=== PATIENT | male | born 2000 | race Caucasian/White ===

== ENCOUNTER 2022-09-07 15:10 | Outpatient (CLI) | payer OTHER ==
[2022-09-07 16:28] LABS: #Eosinphils 0.1 10x3/uL (0.0-0.5); #Monocytes 1.1 10x3/uL (0.0-1.1); #Neutrophils 6.1 10x3/uL (1.5-8.4); %Basophils 0.3 % (0.0-2.0); %Eosinophils 0.6 % (0.0-6.0); %Lymphocytes 21.6 % (18.0-47.0); %Monocytes 11.9 % (0.0-10.0); %Neutrophils 65.2 % (40.0-75.0); Hemoglobin 13.4 g/dL (13.5-17.5); Mean Corpuscular HGB CONC 34.9 g/dL (32.0-36.0); Mean Corpuscular Hemoglobin 31.6 pg (27.0-33.0); Mean Corpuscular Volume 90.6 fl (81.2-95.1); Mean Platelet Volume 10.3 fl (7.4-10.4); Platelet Count 319 10x3/uL (150-450); RBC Distribution Width 11.9 % (11.5-14.5); Red Blood Cell (RBC) Count 4.24 10x6/uL (4.32-5.72); White Blood Cell (WBC) Count 9.3 10x3/uL (3.5-10.5)
== END 2022-09-07 15:11 | disposition home or self-care (01) ==
LOC: LABBT 15:10
PROVIDERS: ATTEND Surgery
DX: Z01.812 Encounter for preprocedural laboratory examination (principal); N63.0 Unspecified lump in unspecified breast; Z20.822 Contact with and (suspected) exposure to COVID-19
CPT/HCPCS: 85025; 87811

== ENCOUNTER 2022-09-10 06:05 | Day surgery (SDC) | payer OTHER ==
[2022-09-09 09:50] VITALS: BMI 26.6
[2022-09-10] MEDS ORDERED: fentaNYL Citrate/PF 100 MCG/2 ML SYRINGE ONE (06:19)
[2022-09-10] MEDS ORDERED: EPINEPHrine 1 MG/ML AMP ONE (07:22)
[2022-09-10] MEDS ORDERED: Bupivacaine 0.25% HCL 30 ML VIAL ONE (07:22)
[2022-09-10] MEDS ORDERED: Sodium Chloride 0.9% 100 ML ONE (07:43)
[2022-09-10] MEDS ORDERED: CEFAZOLIN 2 GM VIAL ONE (07:43)
[2022-09-10] MEDS ORDERED: Dexamethasone 20 MG/5 ML VIAL ONE (07:55)
[2022-09-10] MEDS ORDERED: Ondansetron PF 4 MG/2 ML Vial ONE (07:55)
[2022-09-10] MEDS ORDERED: Ketorolac Tromethamine 30 MG/ML VIAL ONE (07:55)
[2022-09-10] MEDS ORDERED: PROPOFOL 200 MG/20 ML VIAL ONE (07:55)
[2022-09-10] MEDS ORDERED: PHENYLEPHRINE-NS 100 MCG/ML 10 ML SYRINGE ONE (07:55)
[2022-09-10] MEDS ORDERED: ePHEDrine 50 MG/ML VIAL ONE (07:55)
== END 2022-09-10 10:52 | disposition home or self-care (01) ==
LOC: SDC 06:05
PROVIDERS: ATTEND Surgery
PROC: 0HBU0ZZ Excision of Left Breast, Open Approach (ICD-10-PCS; principal; 2022-09-10)
DX: N62 Hypertrophy of breast (principal); Z79.899 Other long term (current) drug therapy
CPT/HCPCS: 88305; J0171; J0690; J1100; J1885; J2405; J2704; J3490; S0020